=== PATIENT | male | born 1970 | race Caucasian/White ===

== ENCOUNTER 2017-05-26 09:56 | Emergency (ER) | payer OTHER ==
[~2017-05-26] VITALS: Ht 188 cm; Wt 94.0 kg
[2017-05-26 10:39] LABS: EOSINOPHIL COUNT 0.1 K/uL (0-0.3); HEMATOCRIT 42.8 % (38.0-50.0); IMMATURE GRANULOCYTE (%) 0.2 % (0.0-0.7); INSTRUMENT ABS NEUTROPHIL CT 6.4 K/uL; LYMPHOCYTE COUNT 2.4 K/uL (1.0-2.8); MCH 29.3 PG (29.0-34.0); MCHC 33.2 G/DL (30.0-36.0); MCV 88.4 FL (86-99); MONOCYTE (%) 6.4 % (3-12); MONOCYTE COUNT 0.6 K/uL (0-0.8); NEUTROPHIL (%) 66.7 % (45-76); NEUTROPHIL COUNT 6.4 K/uL (1.8-6.4); PLATELET COUNT 241 K/uL (156-360); RBC DIS.WIDTH-CV 12.7 % (11.8-14.6); RBC DIS.WIDTH-SD 41.3 % (39-53); RED BLOOD COUNT 4.84 M/uL (4.00-5.50); WHITE BLOOD COUNT 9.6 K/uL (4.1-10.2)
[2017-05-26 10:45] LABS: BILIRUBIN NEGATIVE; BLOOD NEGATIVE; COLOR YELLOW ((YELLOW)); GLUCOSE (STRIP) NEGATIVE; KETONES NEGATIVE; LEUKOCYTES NEGATIVE; NITRITE NEGATIVE; PROTEIN (STRIP) NEGATIVE; SPECIFIC GRAVITY 1.018 (1.000-1.030); UROBILINOGEN 0.2 MG/DL (0.2-1.0)
[2017-05-26 10:46] LABS: ADD MIUA? NO
[2017-05-26 11:03] LABS: CHLORIDE 107 mEq/L (99-109); POTASSIUM 4.1 mEq/L (3.7-5.4); SODIUM 140 mEq/L (136-147)
[2017-05-26 11:04] LABS: GLUCOSE 114 mg/dL (70-99)
[2017-05-26 11:06] LABS: ANION GAP 10 MEQ/L (2-14)
[2017-05-26 11:08] LABS: GFR ESTIMATE (CALCULATED) > 59 mL/min/
[2017-05-26 11:09] LABS: UREA NITROGEN (BUN) 19 mg/dL (9-23)
[2017-05-26 12:43] VITALS: BP 118/63
[2017-05-26] MEDS ORDERED: PERCOCET 5/31 TABLET PO (12:54)
[2017-05-26] MEDS ORDERED: FLOMAX0.4 MG PO (12:54)
[2017-05-26] MEDS ORDERED: ZOFRAN ODT4 MG PO (12:54)
== END 2017-05-26 13:09 | disposition home or self-care (01) ==
LOC: EME 09:56
PROVIDERS: Emergency Medicine
DX: N13.2 Hydronephrosis with renal and ureteral calculous obstruction (principal); Z87.442 Personal history of urinary calculi
CPT/HCPCS: 74176; 80048; 81003; 85025; 99281; 99284; J1885; J2270; J2405; J7030

== ENCOUNTER 2017-07-07 20:48 | Observation (INO) | payer OTHER ==
[~2017-07-07] VITALS: Ht 188 cm; Wt 95.0 kg
[~2017-07-07 20:48] MED LIST: FLOMAX0.4 MG PO; PERCOCET 5/31 TABLET PO; ZOFRAN ODT4 MG PO
[2017-07-07 21:28] LABS: HEMATOCRIT 42.2 % (38.0-50.0); MCH 29.9 PG (29.0-34.0); MCHC 34.1 G/DL (30.0-36.0); MCV 87.6 FL (86-99); MEAN PLAT.VOLUME 12.8 uM^3 (9.0-12.4); PLATELET COUNT 209 K/uL (156-360); RBC DIS.WIDTH-CV 12.6 % (11.8-14.6); RBC DIS.WIDTH-SD 40.9 % (39-53); RED BLOOD COUNT 4.82 M/uL (4.00-5.50); WHITE BLOOD COUNT 8.5 K/uL (4.1-10.2)
[2017-07-07 21:40] LABS: CHLORIDE 107 mEq/L (99-109); POTASSIUM 4.1 mEq/L (3.7-5.4); SODIUM 142 mEq/L (136-147)
[2017-07-07 21:42] LABS: GLUCOSE 119 mg/dL (70-99)
[2017-07-07 21:44] LABS: ANION GAP 15 MEQ/L (2-14); TOTAL BILIRUBIN 0.4 mg/dL (0.0-1.0)
[2017-07-07 21:46] LABS: ALKALINE PHOSPHATASE 55 IU/L (3-129); GFR ESTIMATE (CALCULATED) > 59 mL/min/
[2017-07-07 21:47] LABS: UREA NITROGEN (BUN) 23 mg/dL (9-23)
[2017-07-07 23:54] LABS: ADD MIUA? YES; BILIRUBIN NEGATIVE; BLOOD MODERATE; COLOR YELLOW ((YELLOW)); GLUCOSE (STRIP) NEGATIVE; KETONES 5; LEUKOCYTES TRACE; NITRITE NEGATIVE; PROTEIN (STRIP) NEGATIVE; SPECIFIC GRAVITY 1.019 (1.000-1.030); UROBILINOGEN 0.2 MG/DL (0.2-1.0)
[2017-07-07 23:59] LABS: BACTERIA NONE SEEN /HPF; EPITHELIAL CELLS RARE /HPF; MUCUS TRACE /LPF; RED BLOOD CELLS TNTC /HPF (0-5); UCUL ADDED? YES; WHITE BLOOD CELLS 0-5 /HPF (0-5)
[2017-07-08] VITALS (7 sets, daily range): BP systolic 111–158; BP diastolic 63–78
[2017-07-08] MEDS ORDERED: GLUCOPHAGE500 MG PO
[2017-07-08] MEDS ORDERED: LIPITOR40 MG PO (00:01)
[2017-07-08] MEDS ORDERED: ZESTRIL5 MG PO (00:02)
[2017-07-08] MEDS ORDERED: MULTI VITAMIN1 EACH PO (00:03)
[2017-07-08 07:44] LABS: POINT-OF-CARE METER ID UU14162508
[2017-07-08 11:34] LABS: METH RESISTANT S AUREUS PCR NEGATIVE (NEGATIVE)
[2017-07-08 11:39] LABS: PROBE CHECK PASS; SPECIMEN PROCESSING CONTROL PASS
[2017-07-08 11:50] LABS: POINT-OF-CARE METER ID UU14208750
[2017-07-08 13:45] LABS: POINT-OF-CARE METER ID UU13113675; POINT-OF-CARE USER ID 515036437
[2017-07-08] MEDS ORDERED: ZOFRAN4 MG PO (16:17)
[2017-07-08] MEDS ORDERED: CIPRO500 MG PO (16:17)
[2017-07-08 16:27] LABS: POINT-OF-CARE METER ID UU14208750
[2017-07-08 21:43] LABS: POINT-OF-CARE METER ID UU14208750
[2017-07-09 03:58] VITALS: BP 110/57
[2017-07-09 06:29] LABS: POINT-OF-CARE METER ID UU14208750
[2017-07-09 06:41] LABS: HEMATOCRIT 35.7 % (38.0-50.0); MCH 30.4 PG (29.0-34.0); MCHC 33.1 G/DL (30.0-36.0); MEAN PLAT.VOLUME 12.6 uM^3 (9.0-12.4); PLATELET COUNT 149 K/uL (156-360); RBC DIS.WIDTH-CV 13.4 % (11.8-14.6); RBC DIS.WIDTH-SD 45.5 % (39-53); RED BLOOD COUNT 3.88 M/uL (4.00-5.50); WHITE BLOOD COUNT 10.4 K/uL (4.1-10.2)
[2017-07-09 07:01] LABS: ANION GAP 7 MEQ/L (2-14); CHLORIDE 108 MEQ/L (99-109); GFR ESTIMATE (CALCULATED) > 59 mL/min/; GLUCOSE 113 mg/dL (70-99); POTASSIUM 4.2 MEQ/L (3.7-5.4); SAMPLE HEMOLYSIS CHECK 0; SAMPLE ICTERIC CHECK 0; SAMPLE LIPEMIA CHECK 0; SODIUM 140 MEQ/L (136-147); UREA NITROGEN (BUN) 19 mg/dL (9-23)
[2017-07-09 07:10] VITALS: BP 107/66
== END 2017-07-09 10:59 | disposition home or self-care (01) ==
LOC: EME 20:48 → RME 20:48 → EDOF 07-08 00:39 → 2EASTP 07-08 00:39 → ENRESERV 07-08 00:47 → 2EASTP 07-08 03:55
PROVIDERS: Family Medicine; Hospitalist; Nurse Practitioner Family; Urology
DX: N13.2 Hydronephrosis with renal and ureteral calculous obstruction (principal); N21.0 Calculus in bladder; N39.0 Urinary tract infection, site not specified; Z87.442 Personal history of urinary calculi; R73.03 Prediabetes; I10 Essential (primary) hypertension; Z79.84 Long term (current) use of oral hypoglycemic drugs; K59.00 Constipation, unspecified; Z91.041 Radiographic dye allergy status
CPT/HCPCS: 74176; 80048; 80053; 81003; 82365 90; 82948; 85027; 87086; 87641; 99281; 99285; C1769; C2625; G0378; J0330; J0696; J1100; J1170; J1644; J1815; J1885; J2060; J2270; J2405; J2765; J3010; J7030; J7050

== ENCOUNTER 2017-07-10 13:54 | Inpatient (IN) | payer OTHER ==
[~2017-07-10] VITALS: Ht 188 cm; Wt 94.5 kg
[~2017-07-10 13:54] MED LIST changes: +CIPRO500 MG PO; +GLUCOPHAGE500 MG PO; +LIPITOR40 MG PO; +MULTI VITAMIN1 EACH PO; +ZESTRIL5 MG PO; +ZOFRAN4 MG PO
[2017-07-10 14:35] LABS: HEMATOCRIT 38.5 % (38.0-50.0); MCH 29.5 PG (29.0-34.0); MCHC 33.5 G/DL (30.0-36.0); MCV 88.1 FL (86-99); MEAN PLAT.VOLUME 12.3 uM^3 (9.0-12.4); PLATELET COUNT 184 K/uL (156-360); RBC DIS.WIDTH-CV 12.7 % (11.8-14.6); RBC DIS.WIDTH-SD 40.8 % (39-53); RED BLOOD COUNT 4.37 M/uL (4.00-5.50); WHITE BLOOD COUNT 13.7 K/uL (4.1-10.2)
[2017-07-10 14:44] LABS: CHLORIDE 107 mEq/L (99-109); SODIUM 140 mEq/L (136-147)
[2017-07-10 14:45] LABS: POTASSIUM 3.3 mEq/L (3.7-5.4)
[2017-07-10 14:47] LABS: GLUCOSE 119 mg/dL (70-99)
[2017-07-10 14:48] LABS: ANION GAP 12 MEQ/L (2-14)
[2017-07-10 14:49] LABS: TOTAL BILIRUBIN 0.6 mg/dL (0.0-1.0)
[2017-07-10 14:50] LABS: ALKALINE PHOSPHATASE 46 IU/L (3-129); GFR ESTIMATE (CALCULATED) > 59 mL/min/
[2017-07-10 14:51] LABS: UREA NITROGEN (BUN) 16 mg/dL (9-23)
[2017-07-10 15:27] LABS: ADD MIUA? YES; BILIRUBIN NEGATIVE; BLOOD LARGE; GLUCOSE (STRIP) NEGATIVE; KETONES NEGATIVE; LEUKOCYTES SMALL; NITRITE NEGATIVE; PROTEIN (STRIP) 100; SPECIFIC GRAVITY 1.021 (1.000-1.030); UROBILINOGEN 0.2 MG/DL (0.2-1.0)
[2017-07-10 15:33] LABS: COLOR RED ((YELLOW))
[2017-07-10 15:55] LABS: BACTERIA NONE SEEN /HPF; CALCIUM OXALATE CRYSTALS 4+ /HPF; EPITHELIAL CELLS NONE SEEN /HPF; MUCUS NONE SEEN /LPF; RED BLOOD CELLS TNTC /HPF (0-5); UCUL ADDED? YES; WHITE BLOOD CELLS 30-40 /HPF (0-5)
[2017-07-10 20:37] VITALS: BP 142/80
[2017-07-10 22:34] LABS: POINT-OF-CARE METER ID UU14117124
[2017-07-10 23:57] VITALS: BP 142/91
[2017-07-11 05:09] VITALS: BP 122/75
[2017-07-11 07:21] LABS: HEMATOCRIT 36.4 % (38.0-50.0); MCHC 33.2 G/DL (30.0-36.0); MCV 90.1 FL (86-99); MEAN PLAT.VOLUME 12.7 uM^3 (9.0-12.4); PLATELET COUNT 168 K/uL (156-360); RBC DIS.WIDTH-CV 12.9 % (11.8-14.6); RBC DIS.WIDTH-SD 42.6 % (39-53); RED BLOOD COUNT 4.04 M/uL (4.00-5.50); WHITE BLOOD COUNT 12.3 K/uL (4.1-10.2)
[2017-07-11 07:47] LABS: ANION GAP 9 MEQ/L (2-14); CHLORIDE 106 MEQ/L (99-109); GFR ESTIMATE (CALCULATED) > 59 mL/min/; GLUCOSE 126 mg/dL (70-99); POTASSIUM 4.8 MEQ/L (3.7-5.4); SAMPLE HEMOLYSIS CHECK 0; SAMPLE ICTERIC CHECK 0; SAMPLE LIPEMIA CHECK 0; SODIUM 139 MEQ/L (136-147); UREA NITROGEN (BUN) 19 mg/dL (9-23)
[2017-07-11 07:59] VITALS: BP 130/70
[2017-07-11 11:42] LABS: POINT-OF-CARE METER ID UU14117124
[2017-07-11 15:53] VITALS: BP 120/69
[2017-07-11 16:35] LABS: POINT-OF-CARE METER ID UU14208753
[2017-07-11 22:26] LABS: POINT-OF-CARE METER ID UU14208753; POINT-OF-CARE USER ID 606021424
[2017-07-12 00:36] VITALS: BP 118/69
[2017-07-12 06:05] LABS: POINT-OF-CARE METER ID UU14117124; POINT-OF-CARE USER ID 606021424
[2017-07-12 07:10] VITALS: BP 135/75
[2017-07-12 11:37] LABS: POINT-OF-CARE METER ID UU14188577
[2017-07-12 21:41] LABS: POINT-OF-CARE METER ID UU14117124
[2017-07-12 23:16] VITALS: BP 134/81
[2017-07-13 06:26] LABS: POINT-OF-CARE METER ID UU14208753
[2017-07-13 07:19] LABS: HEMATOCRIT 34.5 % (38.0-50.0); MCH 29.9 PG (29.0-34.0); MCV 90.6 FL (86-99); MEAN PLAT.VOLUME 12.4 uM^3 (9.0-12.4); PLATELET COUNT 177 K/uL (156-360); RBC DIS.WIDTH-CV 13.1 % (11.8-14.6); RED BLOOD COUNT 3.81 M/uL (4.00-5.50); WHITE BLOOD COUNT 10.8 K/uL (4.1-10.2)
[2017-07-13 07:31] VITALS: BP 136/80
[2017-07-13 07:50] LABS: ANION GAP 7 MEQ/L (2-14); CHLORIDE 105 MEQ/L (99-109); GFR ESTIMATE (CALCULATED) 39 mL/min/; GLUCOSE 99 mg/dL (70-99); MAGNESIUM 1.9 mg/dl (1.3-2.7); POTASSIUM 4.1 MEQ/L (3.7-5.4); SAMPLE HEMOLYSIS CHECK 0; SAMPLE ICTERIC CHECK 0; SAMPLE LIPEMIA CHECK 0; SODIUM 137 MEQ/L (136-147); UREA NITROGEN (BUN) 23 mg/dL (9-23)
[2017-07-13 12:02] LABS: POINT-OF-CARE METER ID UU14188577
[2017-07-13 16:22] VITALS: BP 146/82
[2017-07-13 16:31] LABS: ANION GAP 10 MEQ/L (2-14); CHLORIDE 109 MEQ/L (99-109); GFR ESTIMATE (CALCULATED) 59 mL/min/; GLUCOSE 100 mg/dL (70-99); POTASSIUM 3.9 MEQ/L (3.7-5.4); SAMPLE HEMOLYSIS CHECK 0; SAMPLE ICTERIC CHECK 0; SAMPLE LIPEMIA CHECK 0; SODIUM 142 MEQ/L (136-147); UREA NITROGEN (BUN) 17 mg/dL (9-23)
[2017-07-13 16:38] LABS: POINT-OF-CARE METER ID UU14208753
[2017-07-13 21:39] LABS: POINT-OF-CARE METER ID UU14117124
[2017-07-13 23:41] VITALS: BP 135/75
[2017-07-14 06:45] LABS: POINT-OF-CARE METER ID UU14117124
[2017-07-14 07:17] LABS: ANION GAP 9 MEQ/L (2-14); CHLORIDE 107 MEQ/L (99-109); GFR ESTIMATE (CALCULATED) > 59 mL/min/; GLUCOSE 108 mg/dL (70-99); POTASSIUM 4.2 MEQ/L (3.7-5.4); SAMPLE HEMOLYSIS CHECK 0; SAMPLE ICTERIC CHECK 0; SAMPLE LIPEMIA CHECK 0; SODIUM 141 MEQ/L (136-147); UREA NITROGEN (BUN) 12 mg/dL (9-23)
[2017-07-14 07:38] VITALS: BP 141/89
[2017-07-14 11:42] LABS: POINT-OF-CARE METER ID UU14117124
[2017-07-14] MEDS ORDERED: CYCLOBENZAPRINE10 MG PO (16:42)
[2017-07-14] MEDS ORDERED: TAMSULOSIN HCL0.4 MG PO (16:42)
[2017-07-14 16:49] LABS: POINT-OF-CARE METER ID UU14188577
[2017-07-14 17:19] VITALS: BP 165/82
== END 2017-07-14 17:40 | disposition home or self-care (01) | DRG 690 ==
LOC: EME 13:54 → 3EAST 19:02 → EDOF 19:02 → ENRESERV 19:04 → 3EAST 20:35
PROVIDERS: Hospitalist; Internal Medicine; Physician Assistant
DX: N13.6 Pyonephrosis (principal); E78.00 Pure hypercholesterolemia, unspecified; E11.9 Type 2 diabetes mellitus without complications; E78.5 Hyperlipidemia, unspecified; E87.6 Hypokalemia; G43.909 Migraine, unspecified, not intractable, without status migrainosus; Z79.84 Long term (current) use of oral hypoglycemic drugs; Z91.041 Radiographic dye allergy status
CPT/HCPCS: 74000; 74177; 76000; 80048; 80048 91; 80053; 81003; 82948; 83605; 83735; 85027; 87040; 87086; 99281; 99285; C2625; J0692; J0696; J1170; J1200; J1644; J1815; J1885; J2175; J2250; J2270; J2405; J2930; J3010; J7030; J7050